=== PATIENT | male | born 1995 | race Caucasian/White ===

== ENCOUNTER 2017-04-18 13:10 | Emergency (ER) | payer BC, OTHER ==
[2017-04-18 13:21] VITALS: BP 116/90
[2017-04-18] MEDS ORDERED: Lidocaine 1% 50 ML MDV SUBCUT STA (13:39)
--- NOTE | 2017-04-18 14:19 | EDM.PDOC ---
ED HPI GENERAL MEDICAL PROBLEM - General Chief Complaint: Upper Extremity Injury/Pain Stated Complaint: Laceration Time Seen by Provider: 04/18/17 13:45 Source of Information: Reports: Patient, RN Notes Reviewed History Limitations: Reports: No Limitations - History of Present Illness INITIAL COMMENTS - FREE TEXT/NARRATIVE: 21 year old male presents to the ED with laceration to the tip of his right thumb. Injury occurred while cutting tomatoes with a knife. The distal corner of his nail was cut as well. No numbness or tingling. Last tetanus was in 2013. Right Hand Pain Score (Numeric/FACES): 1 - Related Data Allergies Allergy/AdvReac Type Severity Reaction Status Date / Time No Known Allergies Allergy Verified 04/18/17 13:18 Home Meds: Home Meds . [No Known Home Meds] 04/18/17 [History] Past Medical History - Past Health History Medical/Surgical History: Denies Medical/Surgical History Social & Family History - Tobacco Use Smoking Status *Q: Never Smoker - Recreational Drug Use Recreational Drug Use: No Review of Systems - Review of Systems Review Of Systems: See Below Skin: Reports: Wound Neurological: Denies: Numbness, Tingling, Weakness ED EXAM, GENERAL - Physical Exam Exam: See Below Exam Limited By: No Limitations General Appearance: Alert, WD/WN, No Apparent Distress Extremities: Normal Inspection, Normal Range of Motion, Non-Tender Neurological: Alert, Normal Cognition, No Motor/Sensory Deficits Skin Exam: Warm, Dry, Wound/Incision (laceration to tip of right thumb. Distal corner of nail is avulsed. Flap of skin is intact but nearly completely avulsed. CMS intact. Bleeding controlled. ) Course - Vital Signs Last Recorded V/S: Last Vital Signs Temp 98.3 F 04/18/17 13:18 Pulse 67 04/18/17 13:18 Resp BP 116/90 04/18/17 13:18 Pulse Ox 97 04/18/17 13:18 - Orders/Labs/Meds Meds: Medications Discontinued Medications Generic Name Dose Route Start Last Admin Trade Name Salvatore PRN Reason Stop Dose Admin Lidocaine HCl 50 ml 04/18/17 13:39 04/18/17 13:54 Xylocaine 1% SUBCUT 04/18/17 13:40 50 ml NOW STA Administration - Re-Assessments/Exams Free Text/Narrative Re-Assessment/Exam: The flap to the finger was nearly completely avulsed. Sutures are not indicated. Flap was removed including portion of the avulsed nail. The base of the nail is intact. Minimal damage to nail bed. Measuring approximately 1 cm in diameter. Wound was cleansed and dressed. Discharge instructions as documented. Departure - Departure Time of Disposition: 14:18 Disposition: Home, Self-Care 01 Condition: Good Clinical Impression: Injury of tip of finger Qualifiers: Encounter type: initial encounter Laterality: right Qualified Code(s): S69.91XA - Unspecified injury of right wrist, hand and finger(s), initial encounter - Discharge Information Instructions: Laceration Care, Adult Referrals: PCP,None [Primary Care Provider] - Forms: ED Department Discharge Additional Instructions: Laceration Try to keep initial dressing in place for 24 hours After 24 hours, you can gently wash the wound with gentle soap and water Apply antibiotic ointment and keep the wound covered for first 2-3 days then leave open to air Keep wound covered if there is a chance it can get dirty Follow-up with Greg Pineda PAC next week for recheck. Return to clinic if signs or symptoms of infection arise, including increased redness, swelling, drainage, or fever Tylenol or Ibuprofen as needed for pain
== END 2017-04-18 14:40 | disposition home or self-care (01) ==
LOC: JD.ED 13:10
DX: S61.111A Laceration without foreign body of right thumb with damage to nail, initial encounter (principal); W26.0XXA Contact with knife, initial encounter
CPT/HCPCS: 99282; 99283